=== PATIENT | female | born 1960 | race Caucasian/White ===

== ENCOUNTER → 2016-05-20 08:33 | Day surgery (SDC) | payer OTHER ==
[~2016-05-20 08:33] MED LIST: Buffered Lidocaine 1% SYR 3ML* 3 ML/SYR SYRINGE INTRADERM ONE; Bupivacaine 0.25% SDV* 30 ML ONE; Dexamethasone IV* 4 MG/ML 1 ML (4 MG) ONE; Famotidine IV* 10 MG/ML 2 ML (20 mg) ONE; KETAMINE HCL* 50 MG/ML 10 ML VIAL ONE; Ketorolac INJ* 30 MG/ML 1 ML VIAL ONE; Lidocaine 2% PF * 5 ML VIAL ONE; Metoclopramide TAB* 10 MG ONE; Midazolam* 1 MG/ML 5 ML VIAL (5 MG) ONE; Ondansetron INJ* 2 MG/ML VIAL IV PRN; Ondansetron INJ* 2 MG/ML VIAL ONE; Propofol* 10 MG/ML 20 ML BTL IV PUSH ONE; ceFAZolin 2 GM PREMIX (*) 2 GM/50 ML BAG IVPB ONE; fentaNYL* 50 MCG/ML 2 ML VIAL (100 MCG VIAL) IV PRN; fentaNYL* 50 MCG/ML 2 ML VIAL (100 MCG VIAL) ONE; oxyCODONE/Acetamin 5/325 MG* TAB ONE; oxyCODONE/Acetamin 5/325 MG* TAB PO PRN
[2016-05-20] MEDS: Famotidine IV* 10 MG/ML 2 ML (20 mg) IV ONE ×2 (09:14→10:03)
[2016-05-20] MEDS: Metoclopramide TAB* 10 MG PO ONE ×2 (09:15→10:04)
[2016-05-20 13:59] VITALS: BP 107/69
--- NOTE | 2016-05-20 23:52 | OP ---
DATE OF OPERATION: 05/20/16 - [facility] DATE OF : 62 SURGEON: Dashawn Yates MD DIESEL INSPECTOR: KUMAR Manzo ANESTHESIOLOGIST: Dr. Klein. ANESTHESIA: Local MAC PRE-OP DIAGNOSIS: Symptomatic hardware, left olecranon plate and screws. POST-OP DIAGNOSIS: Symptomatic hardware, left olecranon plate and screws. OPERATIVE PROCEDURE: Removal of left olecranon plate and screws. INDICATIONS: Ms. Reece had her left olecranon fracture fixed by Dr. Sathya Walters back in February of 2011. It has healed uneventfully, but the plate is quite prominent and it is bothering her and so she elected to proceed with removal of the plate and screws. She was also having some intermittent numbness and tingling in the ulnar nerve distribution as well as some neuropathic type symptoms. We had talked about doing an ulnar nerve decompression at the same time over there. She had decided to hold off on that. ESTIMATED BLOOD LOSS: 5 mL. COMPLICATIONS: Just one of the screws was firmly embedded in the bone and became dissociated from the head of the screw during removal and remained retained in the bone. FINDINGS: As expected. DESCRIPTION OF PROCEDURE: She was seen in the preoperative holding area. The correct side, site and procedure were identified. She came back to the operating room where we had a time-out and I anesthetized the operative area. She received some additional anesthesia and then we prepped and draped the arm in the usual fashion and a formal time-out was performed. Utilizing the patient's prior incision, full-thickness flaps were raised straight down to the proximal ulna and olecranon. As we came proximally, I made a small split in the distal triceps tendon, although the plate did not extend too far proximal and there was not too much of a split required. Soft tissue was freed up off the plate. I then used both the hexagonal and the StarDrive screwdrivers to remove the screws from distal to proximal. When I got to the very much proximal screw, it was very firmly embedded in the bone. I went back and forth between the combinations of slightly tightening the screw and then loosening it, tightening it and loosening it, and ultimately the head of the screw broke off. At this point, I then removed the plate and used the rongeur to nip off any sharp bony edges. I then used the broken screw removal set to core out about three-quarters of a centimeter length around the screw where the screw that had broken off. I then used the reverse threading device to engage the threads of the retained screw. It was very firmly fixed into the bone and as I tried to remove the screw, the screw then broke again at the tip of the reverse threading device. At this point, I decided that it would cause much more harm than good to make any further attempts to remove the remainder of the fully embedded screw, so we went ahead and irrigated out the wound and closed the distal split in the triceps with a 0 Vicryl. The subcutaneous tissue was reapproximated with 3-0 Polysorb and the skin closed with 3-0 nylon. The wound was dressed with Xeroform, 4x4s, sterile Webril, and Sidney wrap and then she was taken to the recovery room in stable condition. [id number]/[facility] #: [id number] ALVARO
--- NOTE | 2016-05-21 15:20 | RAD ---
INDICATION: S 52.022S COMPARISONS: April 14, 2016 TECHNIQUE: Fluoroscopy was provided for a surgical procedure. Total fluoroscopy time is: 8 seconds FINDINGS: Spot images demonstrate interval removal of fixation plate and screws of the left. There is a residual screw of the proximal ulna IMPRESSION: FLUOROSCOPY WAS PROVIDED FOR A SURGICAL PROCEDURE CPT II Codes: 6045F
== END | disposition home or self-care (01) ==
LOC: OREAST 08:33
PROVIDERS: ATTEND Orthopaedic Surgery Hand Surgery
DX: T84.84XA Pain due to internal orthopedic prosthetic devices, implants and grafts, initial encounter (principal); Y79.3 Surgical instruments, materials and orthopedic devices (including sutures) associated with adverse incidents; Y92.9 Unspecified place or not applicable; G56.22 Lesion of ulnar nerve, left upper limb; Z79.82 Long term (current) use of aspirin
CPT/HCPCS: 76000; 88300; A9270-GY; J0690; J1100; J1885; J2250; J2405; J2704; J3010

== ENCOUNTER 2016-05-25 16:08 | Emergency (ER) | payer OTHER ==
[2016-05-25 16:24] VITALS: BP 149/93
--- NOTE | 2016-05-25 19:30 | ED ---
Upper Extremity Pain - HPI Summary HPI Summary: Pt here w/ premature removal of sutures s/p elbow hardware removal surgery with Dr. Yates 6 days ago. She did not like the way the sutures were placed - too tight and skin was "bunched" - fear that this would poor unsightly so removed them. Wound is closed and w/o leaking. She has scabbing within the wound now. Somewhat warmer and swollen compared to Rt elbow but no redness, no streaking, no fluctuance. Also had a rash on her arm and was seen by ortho the other day. They removed her dressing and this is when she saw her sutures and made decision to remove. Rash is improving w/ dressing removal and claritin. Denies fever, chills, N/V/D but does feel she's still recovering in general from her surgery. Denies numbness, tingling, weakness. Has been using FROM w/ this joint as she wasn't clear about post surgical activity. - History of Current Complaint Chief Complaint: EDLacSutureRecheck Stated Complaint: LT ARM INJURY Time Seen by Provider: 05/25/16 18:07 Hx Obtained From: Patient - Allergies/Home Medications Allergies/Adverse Reactions: Allergies Allergy/AdvReac Type Severity Reaction Status Date / Time No Known Allergies Allergy Verified 05/20/16 09:04 PMH/Surg Hx/FS Hx/Imm Hx Previously Healthy: Yes Musculoskeletal History: Reports: Other Musculoskeletal History - sometimes pain in right calf; Lt elbow surgery Sensory History: Reports: Hx Contacts or Glasses - wears reading glasses Denies: Hx Cataracts, Hx Hearing Aid Opthamlomology History: Reports: Hx Contacts or Glasses - wears reading glasses Denies: Hx Cataracts - Cancer History Hx Chemotherapy: No - Surgical History Surgery Procedure, Year, and Place: 2012 hardware left arm Hx Anesthesia Reactions: No Infectious Disease History: No Infectious Disease History: Denies: Traveled Outside the [place] in Last 30 Days - Social History Alcohol Use: Occasionally Substance Use Type: Reports: None Smoking Status (MU): Former Smoker Review of Systems Constitutional: Other - see HPI Negative: Chest Pain Negative: Shortness Of Breath Negative: Vomiting, Nausea Positive: no symptoms reported Musculoskeletal: Other - see HPI Skin: Other - see HPI Negative: Headache, Weakness, Paresthesia, Numbness Psychological: Normal All Other Systems Reviewed And Are Negative: Yes Physical Exam Triage Information Reviewed: Yes Vital Signs On Initial Exam: Initial Vitals Temp Pulse Resp BP Pulse Ox 98.0 F 89 16 149/93 100 05/25/16 16:19 05/25/16 16:19 05/25/16 16:19 05/25/16 16:19 05/25/16 16:19 Vital Signs Reviewed: Yes Appearance: Positive: Well-Appearing, No Pain Distress, Well-Nourished Skin: Positive: Warm, Dry - papular salmon colored urticarial rash over Lt forearm; elbow w/ linear scabbed scar - no drainage, no erythema, no fluctuance ; mild edema compared to Rt - about equal temp to touch Head/Face: Positive: Normal Head/Face Inspection Eyes: Positive: Normal, EOMI, Conjunctiva Clear ENT: Positive: Hearing grossly normal, Pharynx normal Respiratory/Lung Sounds: Positive: Breath Sounds Present Cardiovascular: Positive: Normal, Pulses are Symmetrical in both Upper and Lower Extremities Musculoskeletal: Positive: Normal, Strength/ROM Intact Neurological: Positive: Normal, Sensory/Motor Intact, Alert, Oriented to Person Place, Time, CN Intact II-III Psychiatric: Positive: Anxious Procedures - Procedure Summary Procedure Summary: Skin about surgical wound cleaned and dried then steristrips placed. Pt tolerated well. Diagnostics - Vital Signs Vital Signs Temp Pulse Resp BP Pulse Ox 05/25/16 16:19 98.0 F 89 16 149/93 100 - Laboratory Lab Statement: Any lab studies that have been ordered have been reviewed, and results considered in the medical decision making process. Course/Dx - Course Course Of Treatment: Discussed w/ pt that I do not feel comfortable placing more sutures at this time and in fact tissue appears to be healing well/ approximated, w/o infection, etc. Offered to contact Dr. Yates for advice on her situation however she asked me not to contact him as she did not trust his suture abilities from this surgery. Discussed w/ Dr. Hernandez who feels placing steristrips over the wound would be appropriate by reducing tension of the tissue. Education about how to care for steristrips and to still keep f/u appts w/ Dr. Yates as directed. Danger s/sx reviewed of when to return to ED. Pt agrees w/ plan. NOTE: suggested benadryl 50mg before bed to help w/ rash on arm. She will f/u as directed. - Diagnoses Provider Diagnoses: Healing of postoperative wound Discharge - Discharge Plan Condition: Stable Disposition: HOME Patient Education Materials: Gail (ED) Referrals: Jalen Hall MD [Primary Care Provider] - Additional Instructions: It is advised that you keep steri strips dry and intact until they fall off on their own. Limited ROM elbow to prevent premature dehiscence of your wound. Follow-up with Dr. Yates as recommended. *If wound opens and starts to drain and/or you develop redness, swelling, fever , chills, vomiting or change in sensation of your upper extremity, return to ED NOTE: you may try benadryl 50mg before bed to help with rash
== END 2016-05-25 19:56 | disposition home or self-care (01) ==
LOC: ED 16:08
DX: Z48.1 Encounter for planned postprocedural wound closure (principal); Z87.891 Personal history of nicotine dependence
CPT/HCPCS: 99281

== ENCOUNTER 2016-12-14 17:48 | Emergency (ER) | payer OTHER ==
--- NOTE | 2016-12-14 19:04 | RAD ---
Indication: Right calf pain. Duplex Doppler sonography of the deep venous system of the right lower extremity deep venous system was performed. Bilaterally the common femoral veins appear patent and compressible. Right proximal greater saphenous vein, proximal deep femoral vein, femoral vein, popliteal vein, posterior tibial veins and peroneal veins appear patent and compressible. IMPRESSION: NO EVIDENCE OF DEEP VENOUS THROMBOSIS IS IDENTIFIED.
[2016-12-14 21:24] LABS: Hematocrit 42 % (35-47); Mean Corpuscular HGB Conc 34 g/dl (31-36); Mean Corpuscular Hemoglobin 28 pg (27-31); Mean Corpuscular Volume 85 fL (80-97); Mean Platelet Volume 8 um3 (7.4-10.4); Red Blood Count 4.92 10^6/ul (4.0-5.4); Red Cell Distribution Width 14 % (10.5-15); White Blood Count 6.8 10^3/ul (3.5-10.8)
[2016-12-14 21:38] LABS: Albumin 3.9 g/dL (3.2-5.2); BUN/Creatinine Ratio 25.7 (8-20); Calcium 9.1 mg/dL (8.6-10.3); EGFR African American 104.8 (>60); EGFR Non-African American 81.5 (>60); Potassium 3.9 mmol/L (3.5-5.0); Total Bilirubin 0.3 mg/dL (0.2-1.0); Total Protein 6.9 g/dL (6.4-8.9)
--- NOTE | 2016-12-14 21:44 | RAD ---
Indication: Right ankle injury. 3 views of the right ankle demonstrates no fracture. Ankle mortise is intact. IMPRESSION: No fracture of the right ankle is noted.
--- NOTE | 2016-12-14 21:46 | RAD ---
Indication: Right anterior leg pain. 2 views of the right lower leg demonstrates no fracture. No other bone or joint abnormality is noted. IMPRESSION: No fracture of the right lower leg is noted.
--- NOTE | 2016-12-14 22:11 | ED ---
Sophia Babin Rebecca, scribed for Mayito Lin MD on 12/14/16 at 2121 . Lower Extremity - HPI Summary HPI Summary: Pt is a 56 y/o F who presents to ED c/o R inferior posterior calf pain. Sx began 2 weeks ago and pain is currently severe, ranked 9/10. Pain has not been affecting her gait. Sx aggravated by palpation, alleviated by nothing. Denies edema, SOB, pleuritic pain. No prior similar episodes. Pt has been able to ambulate normally. - History of Current Complaint Chief Complaint: EDExtremityLower Stated Complaint: LEG PAIN Hx Obtained From: Patient Onset of Pain: Days - 2 weeks Onset/Duration: Still Present Severity Currently: Severe Pain Intensity: 9 Pain Scale Used: 0-10 Numeric Location: Is Discrete @ - R inferior posterior calf Associated Signs And Symptoms: Positive: Negative. Negative: Swelling Aggravating Factor(s): Other - Plpation Alleviating Factor(s): Nothing Able to Bear Weight: Yes - Allergies/Home Medications Allergies/Adverse Reactions: Allergies Allergy/AdvReac Type Severity Reaction Status Date / Time No Known Allergies Allergy Verified 05/20/16 09:04 PMH/Surg Hx/FS Hx/Imm Hx Musculoskeletal History: Reports: Other Musculoskeletal History - sometimes pain in right calf; Lt elbow surgery Sensory History: Reports: Hx Contacts or Glasses - wears reading glasses Denies: Hx Cataracts, Hx Hearing Aid Opthamlomology History: Reports: Hx Contacts or Glasses - wears reading glasses Denies: Hx Cataracts - Cancer History Hx Chemotherapy: No - Surgical History Surgery Procedure, Year, and Place: 2012 hardware left arm Hx Anesthesia Reactions: No Infectious Disease History: No Infectious Disease History: Denies: Traveled Outside the [place] in Last 30 Days - Family History Known Family History: Positive: Other - [place] - Social History Alcohol Use: Occasionally Substance Use Type: Reports: None Smoking Status (MU): Former Smoker Review of Systems Positive: Other - NEGATIVE: pleuritic pain Negative: Shortness Of Breath Positive: Myalgia - R inferior posterior calf pain, Other - NEGATIVE: Swelling All Other Systems Reviewed And Are Negative: Yes Physical Exam Triage Information Reviewed: Yes Vital Signs On Initial Exam: Initial Vitals Temp Pulse Resp BP Pulse Ox 98.6 F 103 20 153/92 97 12/14/16 18:20 12/14/16 18:20 10/17/17 18:20 12/14/16 18:20 12/14/16 18:20 Vital Signs Reviewed: Yes Appearance: Positive: Well-Appearing, No Pain Distress Skin: Positive: Warm, Skin Color Reflects Adequate Perfusion Head/Face: Positive: Normal Head/Face Inspection Eyes: Positive: Normal ENT: Positive: Normal ENT inspection Neck: Positive: Supple Respiratory/Lung Sounds: Positive: Clear to Auscultation, Breath Sounds Present Cardiovascular: Positive: Normal Abdomen Description: Positive: Nontender, Soft Musculoskeletal: Positive: Other - Examination of the RLE reveals minimal tenderness to palpation of the calf, no erythema, no edema,negative Frantz's sign and intact pulses. Negative: Frantz Sign Right Neurological: Positive: Normal, Sensory/Motor Intact, Alert, Oriented to Person Place, Time Psychiatric: Positive: Normal - Eva Coma Scale Coma Scale Total: 15 Diagnostics - Vital Signs Vital Signs Temp Pulse Resp BP Pulse Ox 12/14/16 20:22 88 95 12/14/16 20:20 140/89 12/14/16 18:20 98.6 F 103 20 153/92 97 - Laboratory Lab Results: Lab Results 12/14/16 12/14/16 12/14/16 Range/Units 21:17 21:17 21:17 WBC 6.8 (3.5-10.8) 10^3/ul RBC 4.92 (4.0-5.4) 10^6/ul Hgb 14.0 (12.0-16.0) g/dl Hct 42 (35-47) % MCV 85 (80-97) fL MCH 28 (27-31) pg MCHC 34 (31-36) g/dl RDW 14 (10.5-15) % Plt Count 310 (150-450) 10^3/ul MPV 8 (7.4-10.4) um3 Neut % (Auto) 46.5 (38-83) % Lymph % (Auto) 36.4 (25-47) % Stafford % (Auto) 8.7 (1-9) % Eos % (Auto) 7.3 H (0-6) % Baso % (Auto) 1.1 (0-2) % Absolute Neuts (auto) 3.2 (1.5-7.7) 10^3/ul Absolute Lymphs (auto) 2.5 (1.0-4.8) 10^3/ul Absolute Monos (auto) 0.6 (0-0.8) 10^3/ul Absolute Eos (auto) 0.5 (0-0.6) 10^3/ul Absolute Basos (auto) 0.1 (0-0.2) 10^3/ul Absolute Nucleated RBC 0 10^3/ul Nucleated RBC % 0 INR (Anticoag Therapy) 0.86 L (0.89-1.11) Sodium 138 (133-145) mmol/L Potassium 3.9 (3.5-5.0) mmol/L Chloride 106 (101-111) mmol/L Carbon Dioxide 26 (22-32) mmol/L Anion Gap 6 (2-11) mmol/L BUN 19 (6-24) mg/dL Creatinine 0.74 (0.51-0.95) mg/dL Est GFR ( Amer) 104.8 (>60) Est GFR (Non-Af Amer) 81.5 (>60) BUN/Creatinine Ratio 25.7 H (8-20) Glucose 83 (70-100) mg/dL Calcium 9.1 (8.6-10.3) mg/dL Total Bilirubin 0.30 (0.2-1.0) mg/dL AST 16 (13-39) U/L ALT 16 (7-52) U/L Alkaline Phosphatase 63 (34-104) U/L Total Creatine Kinase 53 (10-223) U/L Total Protein 6.9 (6.4-8.9) g/dL Albumin 3.9 (3.2-5.2) g/dL Globulin 3.0 (2-4) g/dL Albumin/Globulin Ratio 1.3 (1-3) Result Diagrams: 12/14/16 21:17 12/14/16 21:17 Lab Statement: Any lab studies that have been ordered have been reviewed, and results considered in the medical decision making process. - Radiology Right Ankle XR Xray Interpretation: No Acute Changes - No fracture of the right ankle is noted. ED physician reviewed radiology report and agrees. Radiology Interpretation Completed By: Radiologist Right Lower Leg XR Xray Interpretation: No Acute Changes - No fracture of the right lower leg is noted. ED physician reviewed radiology report and agrees. Radiology Interpretation Completed By: Radiologist Lower Extremity Course/Dx - Course Course Of Treatment: feels better after pain meds, neuro intact, normal gait , instructed to f/u with pmd and to return for any worsening or concerning sxs. agrees to and understnads dc instructoins. - Diagnoses Provider Diagnoses: Leg pain, inferior Discharge - Discharge Plan Condition: Good Disposition: HOME Additional Instructions: 1. PLEASE RETURN TO THE ER FOR ANY WORSENING OR CONCERNING SYMPTOMS 2. PLEASE SEE YOUR PRIMARY CARE DOCTOR WITHIN 1 WEEK The documentation as recorded by the Sophia connelly Rebecca accurately reflects the service I personally performed and the decisions made by me, Mayito Lin MD.
[2016-12-14 22:20] VITALS: BP 129/95
== END 2016-12-14 22:21 | disposition home or self-care (01) ==
LOC: ED 17:48
DX: M79.606 Pain in leg, unspecified (principal)
CPT/HCPCS: 36415; 80053; 82550; 85025; 85610; 99282

== ENCOUNTER 2019-02-02 12:28 | Inpatient (IN) | payer OTHER ==
--- NOTE | 2019-01-24 15:22 | HP ---
HISTORY AND PHYSICAL: DATE OF ADMISSION/SURGERY: 02/02/19 DATE OF OFFICE VISIT: 01/19/19 SURGEON: Gwendolyn Brian MD * (DICTATED BY KUMAR COX) PROCEDURE: Left total hip arthroplasty. CHIEF COMPLAINT: Left hip pain. HISTORY OF PRESENT ILLNESS: Ms. Reece is a 58-year-old female with end- stage osteoarthritis of the left hip. She has failed conservative treatment and elected to proceed with a left total hip arthroplasty. PAST MEDICAL HISTORY: Denies. PAST SURGICAL HISTORY: Left arm surgery for a fracture and removal of hardware from her left upper extremity. CURRENT MEDICATIONS: 1. Magnesium oxide. 2. Multivitamin. 3. Premarin. 4. Calcium with vitamin D. 5. Airborne Elderberry. ALLERGIES: No known drug allergies. FAMILY HISTORY: Denies. SOCIAL HISTORY: She is a 58-year-old female. She lives alone. She does not smoke or use drugs. Uses alcohol rarely. REVIEW OF SYSTEMS: A complete 14-point review of systems was reviewed with the patient. It was all negative or noncontributory. She denies history of DVT, PE , hepatitis, HIV, or anesthesia problems. PHYSICAL EXAMINATION GENERAL: She is well developed, well nourished, in no acute distress. VITAL SIGNS: She stands 5 feet 7 inches tall, weighs 189 pounds. Her blood pressure is 116/82 and heart rate is 84. HEENT: Normocephalic, atraumatic. NECK: Supple. No palpable lymph nodes. PULMONARY: The lungs are clear to auscultation bilaterally. CARDIO: Regular rate and rhythm. Strong S1, S2. ABDOMEN: Soft, nontender, nondistended. NEUROLOGICAL: She is alert and oriented x3. MUSCULOSKELETAL: Left lower extremity: The skin is intact. There are no open wounds or abrasions. She walks with an antalgic-type gait favoring her left hip. She has decreased internal and external rotation of the left hip. She is able to dorsiflex and plantarflex, has a 2+ dorsalis pedis pulse and intact sensation. ASSESSMENT AND PLAN: Ms. Reece is a 58-year-old female with end-stage osteoarthritis of the left hip. She has failed conservative treatment and elected to proceed with a left total hip arthroplasty. The surgery is scheduled for 02/02/[address] Brian discussed the risks and benefits of the surgery at today's visit and all of her questions were answered. She will follow up with Dr. Brian 2 weeks after the surgery. KUMAR COX [id number]/[facility] #: [id number] ALVARO
[~2019-02-02 12:28] MED LIST changes: -Buffered Lidocaine 1% SYR 3ML* 3 ML/SYR SYRINGE INTRADERM ONE; +Buffered Lidocaine 1% SYRIN* 1 ML/SYRINGE INTRADERM ONE; -Bupivacaine 0.25% SDV* 30 ML ONE; +Bupivacaine 0.5% SDV PF* 30ML VIAL ONE; +Dexamethasone IV* 4 MG/ML 1 ML (4 MG) IV SLOW PU ONE; -Dexamethasone IV* 4 MG/ML 1 ML (4 MG) ONE; +Famotidine IV* 10 MG/ML 2 ML (20 mg) IV ONE; -Famotidine IV* 10 MG/ML 2 ML (20 mg) ONE; +Gabapentin CAP(*) 300 MG PO ONE; -KETAMINE HCL* 50 MG/ML 10 ML VIAL ONE; -Ketorolac INJ* 30 MG/ML 1 ML VIAL ONE; +Lactated Ringers 1000 ML Bag* 1,000 ML IV SCH; -Lidocaine 2% PF * 5 ML VIAL ONE; -Metoclopramide TAB* 10 MG ONE; -Midazolam* 1 MG/ML 5 ML VIAL (5 MG) ONE; -Ondansetron INJ* 2 MG/ML VIAL IV PRN; -Ondansetron INJ* 2 MG/ML VIAL ONE; -Propofol* 10 MG/ML 20 ML BTL IV PUSH ONE; +Tranexamic Acid 1,000 MG in NS 0.9% 50 ML* (outpatient use) IV SCH; -ceFAZolin 2 GM PREMIX (*) 2 GM/50 ML BAG IVPB ONE; +celeCOXIB CAP* 200 MG PO ONE; -fentaNYL* 50 MCG/ML 2 ML VIAL (100 MCG VIAL) IV PRN; -fentaNYL* 50 MCG/ML 2 ML VIAL (100 MCG VIAL) ONE; -oxyCODONE/Acetamin 5/325 MG* TAB ONE; -oxyCODONE/Acetamin 5/325 MG* TAB PO PRN
--- OUTSIDE RECORDS SUMMARY | 2019-02-02 12:33 | XMS REPORT | Continuity of Care Document ---
:1960 External Reference #:[id number] Author Name IMMANUEL Almanzar (transmitted by agent of provider Amara Shaw) Address [address] [place] [address] Care Team Providers Name Role Phone Dashawn Yates MD - Hand Surgery Care Team Information Waiter/Waitress Bar Katherine Linn MD - Internal Medicine Care Team Information Waiter/Waitress Bar [phone] Problems Active Problems Provider Date Open reduction of fracture with Jalen Hall M.D.,[facility] Onset: 2016 internal fixation Note: L forearm Lesion of ulnar nerve Dashawn Yates MD Onset: 04/28/2016 Mixed hyperlipidemia Ross Foster M.D. Onset: 04/22/2017 Cervico-occipital neuralgia Ross Foster M.D. Onset: 04/22/2017 Candidiasis Ross Foster M.D. Onset: 04/22/2017 Obesity Ross Foster M.D. Onset: 04/22/2017 Localized, primary osteoarthritis of the Gwendolyn Brian M.D. Onset: 07/03/2018 pelvic region and thigh Localized, primary osteoarthritis Gwendolyn Brian M.D. Onset: 07/03/2018 Social History Type Date Description Comments Sex Unknown Tobacco Use Start: Unknown End: Former Cigarette Smoker Unknown Smoking Status Reviewed: 01/10/19 Former Cigarette Smoker ETOH Use 04/20/2016 Occasionally consumes alcohol Tobacco Use Start: Unknown End: Patient is a former smoker quit 2009. Unknown Recreational Drug Use Denies Drug Use Exercise Type/Frequency 04/14/2016 Exercises rarely Allergies, Adverse Reactions, Alerts Description No Known Drug Allergies Medications Active Medications SIG Qnty Indications Ordering Date Provider Magnesium Oxide 1 by mouth every 30tabs Katherine Linn MD 08/09/2018 evening 400(240Mg) mg Tablets Multivitamin Adults once daily Katherine Linn MD 04/26/2018 Tablets Clotrimazole apply twice daily 90gm B37.9 Tammieofivanessa Bridges, 04/22/2017 1% Cream STAIR BUILDER Aspir-81 1 by mouth every 30tabs Jalen Talavera 01/31/2017 81mg Tablets day Neil Hall,FACP DR Evans use1 applicator 30gm N95.1 Katherine Linn MD 04/14/2016 0.625mg/GM intavaginal 2x per Cream week Calcium 1000 + D 1 by mouth every Unknown day [id number] Tablets History Medications Amoxicillin/Clavulanate 08/09/18 20tabs R50.9 Katherine Linn, 07/28/2018 - Potassium finished 1 by 08/09/2018 875-125mg Tablets mouth twice a day Medications Administered in Office Medication SIG Qnty Indications Ordering Provider Date Triamcinolone (Kenalog) Gwendolyn Brian M.D. 07/17/2018 Injection Depomedrol 40MG Gwendolyn Brian M.D. 07/03/2018 Injection Immunizations CPT Code Status Date Vaccine Reaction Lot # [id number] Given 01/10/2019 Influenza Virus Vaccine, shot tolerated well, [place] [id number] Quadrivalent, Split, immediate reaction Preservative Free [id number] Given 04/26/2018 Tdap - No immediate reaction [id number] Tetanus/Diptheria/Acellular Pertussis 05323 Given 01/31/2017 Influenza Virus Vaccine, no reaction, pt [id number] Quadrivalent, Split, tolerated well Preservative Free Vital Signs Date Vital Result Comment 01/10/2019 1:11pm Height 67 inches 5'7" Weight 191.38 lb Heart Rate 79 /min BP Systolic 136 mmHg BP Diastolic 81 mmHg Body Temperature 98.1 F O2 % BldC Oximetry 98 % BMI (Body Mass Index) 30.0 kg/m2 12/18/2018 10:28am Height 67 inches 5'7" Weight 191.75 lb Heart Rate 76 /min BP Systolic 142 mmHg BP Diastolic 80 mmHg Respiratory Rate 14 /min Pain Level 0 BMI (Body Mass Index) 30.0 kg/m2 Results Test Acquired Date Facility Test Result H/L Range Note Order 01/10/2019 [facility] In-House EKG Viewed by Sommer Flood CBC Auto 07/12/2018 [facility] White Blood 5.9 10^3/uL Normal 3.5-10.[address] [place] [address] [phone] Red Blood Count 5.13 10^6/uL High 3.70-4.87 Hemoglobin 14.4 g/dL Normal 12.0-16.0 Hematocrit 43 % Normal 35-47 Mean Corpuscular Volume 85 fL Normal 80-97 Mean Corpuscular Hemoglobin 28 pg Normal 27-31 Mean Corpuscular HGB Conc 33 g/dL Normal 31-36 Red Cell Distribution Width 14 % Normal 10.5-15 Platelet Count 338 10^3/uL Normal 150-450 Mean Platelet Volume 7.7 fL Normal 7.4-10.4 Abs Neutrophils 3.1 10^3/uL Normal 1.5-7.7 Abs Lymphocytes 2.0 10^3/uL Normal 1.0-4.8 Abs Monocytes 0.5 10^3/uL Normal 0-0.8 Abs Eosinophils 0.2 10^3/uL Normal 0-0.6 Abs Basophils 0.0 10^3/uL Normal 0-0.2 Abs Nucleated RBC 0.0 10^3/uL Granulocyte % 53.4 % Lymphocyte % 33.7 % Monocyte % 9.1 % Eosinophil % 3.0 % Basophil % 0.8 % Nucleated Red Blood Cells % 0.1 Comp Metabolic 07/12/2018 [facility] Sodium 139 mmol/L Normal 135-[address] [place] [address] [phone] Potassium 4.5 mmol/L Normal 3.5-5.0 Chloride 106 mmol/L Normal 101-111 Co2 Carbon Dioxide 28 mmol/L Normal 22-32 Anion Gap 5 mmol/L Normal 2-11 Glucose 88 mg/dL Normal 70-100 Blood Urea Nitrogen 18 mg/dL Normal 6-24 Creatinine 0.71 mg/dL Normal 0.51-0.95 BUN/Creatinine Ratio 25.4 High 8-20 Calcium 9.8 mg/dL Normal 8.6-10.3 Total Protein 6.8 g/dL Normal 6.4-8.9 Albumin 4.3 g/dL Normal 3.2-5.2 Globulin 2.5 g/dL Normal 2-4 Albumin/Globulin Ratio 1.7 Normal 1-3 Total Bilirubin 0.40 mg/dL Normal 0.2-1.0 Alkaline Phosphatase 76 U/L Normal 34-104 Alt 13 U/L Normal 7-52 Ast 14 U/L Normal 13-39 Egfr Non- 84.8 >60 Egfr 102.7 >60 1 Laboratory 07/12/2018 [facility] TSH (Thyroid 3.26 Normal 0.34 -5.60 test finding [address] Stim Horm) mcIU/mL [place], [place] [id number] [phone] Vitamin B12 426 pg/mL Normal 180-914 2 1 Because ethnic data is not always readily available, this report includes an eGFR for both -Americans and non- Americans. The National Kidney Disease Education Program (NKDEP) does not endorse the use of the MDRD equation for patients that are not between the ages of 18 and 70, are , have extremes of body size, muscle mass, or nutritional status, or are non- or non-. According to the National Kidney Foundation, irrespective of diagnosis, the stage of the disease is based on the level of kidney function: Stage Description GFR(mL/min/1.73 m(2)) 1 Kidney damage with normal or decreased GFR 90 2 Kidney damage with mild decrease in GFR 60-89 3 Moderate decrease in GFR 30-59 4 Severe decrease in GFR 15-29 5 Kidney failure <15 (or dialysis) 2 Normal Range 180 to 914 Indeterminate Range 145 to 180 Deficient Range <145 Procedures Date Code Description Status 01/10/2019 33463 EKG Tracing & Interpretation Completed 01/04/2019 [id number] Colonoscopy Completed 07/17/2018 39937 Inject/Drain Joint/Bursa Major W/O US Completed 05/20/2017 616734136 Bone Mineral Density Test Completed 02/04/2017 21651750 Mammogram Completed Medical Devices Description No Information Available Encounters Type Date Location Provider Dx Diagnosis Office Visit 12/18/2018 [facility] Gwendolyn Brian, M25.552 Pain in left hip 10:00a at [facility] Trejo M16.12 Unilateral primary osteoarthritis, left hip Office Visit 09/21/2018 10:20a [facility] Internal Katherine Linn R59.0 [facility] 08/09/2018 10:00a [facility] Internal Katherine Linn Z12.11 [facility] ne[facility] of colon R59.0 Localized enlarged lymph nodes Office Visit 07/28/2018 4:20p [facility] Internal Katherine Linn R50.9 Fever[facility] unspecified Office Visit 07/17/2018 2:45p [facility] Gwendolyn M25.561 Pain in right at Jocelyn Brian M.D. knee M25.461 Effusion, right knee M17.11 Unilateral primary osteoarthritis, right knee M25.552 Pain in left hip M16.12 Unilateral primary osteoarthritis, left hip Office Visit 07/12/2018 9:40a [facility] Internal Katherine Linn MD R53.83 Other [facility] Localized enlarged lymph nodes Assessments Date Code Description Provider 01/10/2019 Z01.818 Encounter for other preprocedural examination Chyna Bridges [facility] 01/10/2019 M16.12 Unilateral primary osteoarthritis, left hip Chyna Bridges , [facility] 01/10/2019 B37.9 Candidiasis, unspecified Chyna Bridges, [facility] 01/10/2019 Z23 Encounter for immunization Chyna Bridges, [facility] 12/18/2018 M25.552 Pain in left hip Gwendolyn Brian M.D. 12/18/2018 M16.12 Unilateral primary osteoarthritis, left hip Gwendolyn Brian M.D. 09/21/2018 R59.0 Localized enlarged lymph nodes Katherine Linn MD 08/09/2018 Z12.11 Encounter for screening for malignant neoplasm Katherine Linn MD of colon 08/09/2018 R59.0 Localized enlarged lymph nodes Katherine Linn MD 07/28/2018 R50.9 Fever, unspecified Katherine Linn MD 07/17/2018 M25.561 Pain in right knee Gwendolyn Brian M.D. 07/17/2018 M25.461 Effusion, right knee Gwendolyn Brian M.D. 07/17/2018 M17.11 Unilateral primary osteoarthritis, right knee Gwendolyn Brian M.D. 07/17/2018 M25.552 Pain in left hip Gwendolyn Brian M.D. 07/17/2018 M16.12 Unilateral primary osteoarthritis, left hip Gwendolyn Brian M.D. 07/12/2018 R53.83 Other fatigue Katherine Linn MD 07/12/2018 R59.0 Localized enlarged lymph nodes Katherine Linn MD Plan of Treatment Future Appointment(s):01/19/2019 9:00 am - Gwendolyn Brian M.D. at [facility] at Smssjq6802/02/2019 12:30 pm - Gwendolyn Brian M.D. at [facility] at Qmhsje6204/27/2019 1:20 pm - Katherine Linn MD at [facility] Internal Medicine - [facility]01/10/2019 - Chyna Bridges, FNPZ01.818 Encounter for other preprocedural examinationComments:MEDICAL CLEARANCE PRIOR TO SURGERY:I will contact your surgeon with the results of today's visit.Youhave no contraindication to proceed with planned surgeryYou do not have any medication that you absolutely have to take on the day of the surgery. You should hold aspirin for a week prior to surgery will order some routine preoperative lab work at your preoperative exam. You had a normal blood work in June and you do not need additional imzpfikD01.12 Unilateral primary osteoarthritis, left hipComments:Please keep exercising as tolerated.The stronger you are going into surgery, the better of the income will beB37.9 Candidiasis, [id number] Encounter for immunizationComments:Shingles vaccine : There is a new shingles vaccine called Shingrix. SHINGRIX is a vaccine indicated for prevention of herpes zoster (shingles) in adults aged 50 years and older and in immunocompromised individuals.This vaccine is a 2 tier vaccine.Please call your insurance company to make sure they provide coverage for this vaccineYou had the flu vaccine todayI recommend that you have 2-3 weeks before you get the shingle vaccine Functional Status Description No Information Available Mental Status Description No Information Available Referrals Description No Information Available
--- OUTSIDE RECORDS SUMMARY | 2019-02-02 12:33 | XMS REPORT | Continuity of Care Document ---
:1960 External Reference #:[id number] Author Name Gwendolyn Brian M.D. (transmitted by agent of provider Triny Glass) Address [address] [place] [address] Care Team Providers Name Role Phone Dashawn Yates MD - Hand Surgery Care Team Information Industrial Maintenance Repairer [phone] Katherine Linn MD - Internal Medicine Care Team Information Industrial Maintenance Repairer [phone] Problems Active Problems Provider Date Open reduction of fracture with Jalen Hall M.D.,FACP Onset: 2016 internal fixation Note: L forearm [...] Former Cigarette Smoker Unknown Smoking Status Reviewed: 12/18/18 Former Cigarette Smoker ETOH Use 04/20/2016 Occasionally consumes alcohol Tobacco Use Start: Unknown End: Patient is a former social smoker X 20 Unknown smoker years Recreational Drug Use Denies Drug Use Exercise Type/Frequency 04/14/2016 Exercises rarely Allergies, Adverse Reactions, Alerts Description No Known Drug Allergies Medications Active Medications SIG Qnty Indications Ordering Date Provider Magnesium Oxide 1 by mouth every 30tabs Katherine Linn MD 08/09/2018 evening 400(240Mg) mg Tablets Multivitamin Adults once daily Katherine Linn MD 04/26/2018 Tablets Clotrimazole apply twice daily 90gm B37.9 Ross 04/22/2017 1% Cream Neil Foster Aspir-81 1 by mouth every 30tabs Jalen Talavera 01/31/2017 81mg Tablets brent Hall M.D.,FACP DR Evans use1 applicator 30gm N95.1 Katherine Linn MD 04/14/2016 0.625mg/GM intavaginal 2x per Cream week Calcium 1000 + D 1 by mouth every Unknown day [id number] Tablets History Medications Amoxicillin/Clavulanate 08/09/18 20tabs R50.9 Katherine Linn 07/28/2018 - Potassium finished 1 by 08/09/2018 875-125mg Tablets mouth twice a day Medications Administered in Office Medication SIG Qnty Indications Ordering Provider Date Triamcinolone (Kenalog) Gwendolyn Brian M.D. 07/17/2018 Injection Depomedrol 40MG Gwendolyn Brian M.D. 07/03/2018 Injection Immunizations CPT Code Status Date Vaccine Reaction Lot # [id number] Given 04/26/2018 Tdap - No immediate reaction [id number] Tetanus/Diptheria/Acellular Pertussis 62754 Given 01/31/2017 Influenza Virus Vaccine, no reaction, pt [id number] Quadrivalent, Split, tolerated well Preservative Free Vital Signs Date Vital Result Comment 12/18/2018 10:28am Height 67 inches 5'7" Weight 191.75 lb Heart Rate 76 /min BP Systolic 142 mmHg BP Diastolic 80 mmHg Respiratory Rate 14 /min Pain Level 0 BMI (Body Mass Index) 30.0 kg/m2 09/21/2018 10:10am Height 67 inches 5'7" Weight 190.00 lb Heart Rate 78 /min BP Systolic Sitting 131 mmHg BP Diastolic Sitting 88 mmHg Body Temperature 98.7 F O2 % BldC Oximetry 96 % BMI (Body Mass Index) 29.8 kg/m2 Results Test Date Facility Test Result H/L Range Note CBC Auto 07/12/2018 [facility] White Blood 5.9 10^3/uL Normal 3.5-10.[address] [place] [address] [phone] Red Blood Count 5.13 10^6/uL High 3.70-4.87 [...] Blood Cells % 0.1 Comp Metabolic 07/12/2018 [facility] Sodium 139 mmol/L Normal 135-[address] [place] [address] [phone] Potassium 4.5 mmol/L Normal 3.5-5.0 Chloride 106 [...] >60 Egfr 102.7 >60 1 Laboratory 07/12/2018 [facility] TSH (Thyroid 3.26 Normal 0.34 -5.60 test finding [address] Stim Horm) mcIU/[place] [address] [phone] Vitamin B12 426 pg/mL Normal 180-914 2 [...] Range <145 Procedures Date Code Description Status 07/17/2018 Inject/Drain Joint/Bursa Major W/O US Completed 07/03/2018 Inj/Aspir Major JT Or Bursa W/ US Completed 05/20/2017 [id number] Bone Mineral Density Test Completed 02/04/2017 [id number] Mammogram Completed Medical Devices Description No Information Available Encounters Type Date Location Provider Dx Diagnosis Office Visit 09/21/2018 Anjel Linn MD R59.0 Localized enlarged 10:20a Medicine - [facility] lymph nodes Office Visit 08/09/2018 Anjel Linn MD Z12.11 Encounter for 10:00a Medicine - [facility] screening for malignant neoplasm of colon R59.0 Localized enlarged lymph nodes Office Visit 07/28/2018 4:20p Anjel Linn, R50.9 Fever, Medicine - [facility] unspecified Office Visit 07/17/2018 2:45p [facility] Gwendolyn M25.561 Pain in right at Jocelyn Brian M.D. knee M25.461 Effusion, right knee M17.11 Unilateral primary osteoarthritis, right knee M25.552 Pain in left hip M16.12 Unilateral primary osteoarthritis, left hip Office Visit 07/12/2018 9:40a [facility] Internal Katherine Linn MD R53.83 Other fatigue Medicine - [facility] R59.0 Localized enlarged lymph nodes Office Visit 07/03/2018 10:30a [facility] Gwendolyn Roc, M25.552 Pain in left at Jocelyn PlascenciaDEvon hip M25.561 Pain in right knee M25.562 Pain in left knee M17.0 Bilateral primary osteoarthritis of knee M16.12 Unilateral primary osteoarthritis, left hip M25.461 Effusion, right knee M25.462 Effusion, left knee Assessments Date Code Description Provider 12/18/2018 M25.552 Pain in left hip Gwendolyn [...] Localized enlarged lymph nodes Katherine Linn MD 07/03/2018 M25.552 Pain in left hip Gwendolyn Brian M.D. 07/03/2018 M25.561 Pain in right knee Gwendolyn Brian M.D. 07/03/2018 M25.562 Pain in left knee Gwendolyn Brian M.D. 07/03/2018 M17.0 Bilateral primary osteoarthritis of knee Gwendolyn Brian M.D. 07/03/2018 M16.12 Unilateral primary osteoarthritis, left hip Gwendolyn Brian M.D. 07/03/2018 M25.461 Effusion, right knee Gwendolyn Brian M.D. 07/03/2018 M25.462 Effusion, left knee Gwendolyn Brian M.D. Plan of Treatment Future Appointment(s):01/19/2019 9:00 am - Gwendolyn Brian M.D. at [facility] at Vqnckl1602/02/2019 12:30 pm - Gwendolyn Brian M.D. at [facility] at Taiirq8204/27/2019 1:20 pm - Katherine Linn MD at [facility] Internal Medicine - [facility]12/18/2018 - Gwendolyn Brian M.D.M25.552 Pain in left hipFollow up :Follow up: 7-10 days before nolniglB40.12 Unilateral primary osteoarthritis, left hip Functional Status Description No Information Available Mental Status Description No Information Available Referrals Description No Information Available
--- OUTSIDE RECORDS SUMMARY | 2019-02-02 12:33 | XMS REPORT | Continuity of Care Document ---
:1960 External Reference #:[id number] Author Name Wade López NP (transmitted by agent of provider Sarah Gonzalez) Address [address], [place] [address] Care Team Providers Name Role Phone Dashawn Yates MD - Hand Surgery Care Team Information Management Specialist [phone] Katherine Linn MD - Internal Medicine Care Team Information Management Specialist Problems Active Problems Provider Date Open reduction [facility] fracture [facility] Onset: 2016 internal fixation Note: L forearm Lesion of ulnar nerve Dashawn Yates MD Onset: 04/28/2016 Mixed hyperlipidemia Ross Foster M.D. Onset: 04/22/2017 Cervico-occipital neuralgia Ross Foster M.D. Onset: 04/22/2017 Candidiasis Ross Foster M.D. Onset: 04/22/2017 Obesity Ross Foster M.D. Onset: 04/22/2017 Localized, primary osteoarthritis Gwendolyn Brian M.D. Onset: 07/03/2018 Localized, primary osteoarthritis of the Gwendolyn Brian M.D. Onset: 07/03/2018 pelvic region and thigh Social History Type Date Description Comments Sex Unknown Tobacco Use Start: Unknown End: Former Cigarette Smoker Unknown Smoking Status Reviewed: 01/17/19 Former Cigarette Smoker ETOH Use 04/20/2016 Occasionally consumes alcohol Tobacco Use Start: Unknown End: Patient is a former smoker quit 2009. Unknown Recreational Drug Use Denies Drug Use Exercise Type/Frequency 04/14/2016 Exercises rarely Allergies, Adverse Reactions, Alerts Description No Known Drug Allergies Medications Active Medications SIG Qnty Indications Ordering Date Provider Azithromycin 2 tabs by mouth 6tabs R59.0 Wade López NP 01/17/2019 250mg every day x1 day, 1 Tablets tab by mouth every day x 4 days Magnesium Oxide 1 by mouth every 30tabs Katherine Linn MD 08/09/2018 evening 400(240Mg) mg Tablets Multivitamin Adults once daily Katherine Linn MD 04/26/2018 Tablets Clotrimazole apply twice daily 90gm B37.9 Tammieofivanessa Bridges, 04/22/2017 1% Cream THEATRICAL RIGGER Aspir-81 1 by mouth every 30tabs Jalen Talavera 01/31/2017 81mg Tablets day Neil Hall,FACP DR Evans use1 applicator 30gm N95.1 Katherine Linn MD 04/14/2016 0.625mg/GM intavaginal 2x per Cream week Calcium 1000 + D 1 by mouth every Unknown day [id number]-Yipa Tablets History Medications Amoxicillin/Clavulanate 08/09/18 20tabs R50.9 Katherine Linn, 07/28/2018 - Potassium finished 1 by 08/09/2018 875-125mg Tablets mouth twice a day Medications Administered in Office Medication SIG Qnty Indications Ordering Provider Date Triamcinolone (Kenalog) Gwendolyn Brian M.D. 07/17/2018 Injection Depomedrol 40MG Gwendolyn Brian M.D. 07/03/2018 Injection Immunizations CPT Code Status Date Vaccine Reaction Lot # [id number] Given 01/10/2019 Influenza Virus Vaccine, shot tolerated well, no [id number] Quadrivalent, Split, immediate reaction Preservative Free 04482 Given 04/26/2018 Tdap - No immediate reaction [id number] Tetanus/Diptheria/Acellular Pertussis 15577 Given 01/31/2017 Influenza Virus Vaccine, no reaction, pt [id number] Quadrivalent, Split, tolerated well Preservative Free Vital Signs Date Vital Result Comment 01/17/2019 4:11pm Height 67 inches 5'7" Weight 193.38 lb Heart Rate 82 /min BP Systolic 142 mmHg BP Diastolic 85 mmHg Body Temperature 98.4 F O2 % BldC Oximetry 95 % BMI (Body Mass Index) 30.3 kg/m2 01/10/2019 1:11pm Height 67 inches 5'7" Weight 191.38 lb Heart Rate 79 /min BP Systolic 136 mmHg BP Diastolic 81 mmHg Body Temperature 98.1 F O2 % BldC Oximetry 98 % BMI (Body Mass Index) 30.0 kg/m2 Results Test Acquired Date Facility Test Result H/L Range Note Order 01/10/2019 [facility] In-House EKG Viewed by Sommer Flood Procedures Date Code Description Status 01/10/2019 51184 EKG Tracing & Interpretation Completed 01/04/2019 78534139 Colonoscopy Completed 05/20/2017 [id number] Bone Mineral Density Test Completed 02/04/2017 62113057 Mammogram Completed Medical Devices Description No Information Available Encounters Type Date Location Provider Dx Diagnosis Office Visit 12/18/2018 [facility] Gwendolyn Brian, M25.552 Pain in left hip 10:00a at [facility] Trejo M16.12 Unilateral primary osteoarthritis, left hip Office Visit 09/21/2018 10:20a [facility] Internal Katherine Linn, R59.0 Localized Medicine - [facility] enlarged lymph nodes Office Visit 08/09/2018 10:00a [facility] Internal Katherine Linn, Z12.11 Encounter for Medicine - [facility] screening for malignant neoplasm of colon R59.0 Localized enlarged lymph nodes Office Visit 07/28/2018 4:20p [facility] Internal Katherine Linn, R50.9 Fever, unspecified Medicine - [facility] Assessments Date Code Description Provider 01/17/2019 R59.0 Localized enlarged lymph nodes Wade López NP 01/10/2019 Z01.818 Encounter for other preprocedural examination [facility] 01/10/2019 M16.12 Unilateral primary osteoarthritis, left hip Chyna Bridges THEATRICAL RIGGER 01/10/2019 B37.9 Candidiasis, unspecified Chyna Bridges, [facility] 01/10/2019 Z23 Encounter for immunization Chyna Bridges THEATRICAL RIGGER 12/18/2018 M25.552 Pain in left hip Gwendolyn Brian M.D. 12/18/2018 M16.12 Unilateral primary osteoarthritis, left hip Gwendolyn Brian M.D. 09/21/2018 R59.0 Localized enlarged lymph nodes Katherine Linn MD 08/09/2018 Z12.11 Encounter for screening for malignant neoplasm Katherine Linn MD of colon 08/09/2018 R59.0 Localized enlarged lymph nodes Katherine Linn MD 07/28/2018 R50.9 Fever, unspecified Katherine Linn MD Plan of Treatment Future Appointment(s):01/19/2019 9:00 am - Gwendolyn Brian M.D. at [facility] at Ogydtn7802/02/2019 12:30 pm - Gwendolyn Brian M.D. at [facility] at Toxqux7504/27/2019 1:20 pm - Katherine Linn MD at [facility] Internal Medicine - [facility]01/17/2019 - Wade López, NPR59.0 Localized enlarged lymph nodesNew Medication:Azithromycin 250 mg - 2 tabs by mouth every day x1 day, 1 tab by mouth every day x 4 daysComments:Continue to monitor the area for changes. If there is no improvement or any worsening start the antibiotic. Functional Status Description No Information Available Mental Status Description No Information Available Referrals Description No Information Available
--- OUTSIDE RECORDS SUMMARY | 2019-02-02 12:33 | XMS REPORT | Continuity of Care Document ---
:1960 External Reference #:[id number] Author Name Gwendolyn Brian M.D. 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 Onset: 04/22/2017 Cervico-occipital neuralgia Ross Foster M.D. Onset: 04/22/2017 Candidiasis Ross Foster M.D. Onset: 04/22/2017 Obesity Ross Foster M.D. Onset: 04/22/2017 Localized, primary osteoarthritis Gwendloyn Brian M.D. Onset: 07/03/2018 Localized, primary osteoarthritis of the Gwendolyn Brian M.D. 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 07/17/2018 Injection Depomedrol 40MG Gwendolyn Brian M.D. 07/03/2018 Injection Immunizations CPT Code Status Date Vaccine Reaction Lot # [id number] Given 01/10/2019 Influenza Virus Vaccine, shot tolerated well, no [id number] Quadrivalent, Split, immediate reaction Preservative Free 99698 Given 04/26/2018 Tdap - No immediate reaction [id number] Tetanus/Diptheria/Acellular Pertussis 68108 Given 01/31/2017 Influenza Virus Vaccine, no reaction, pt [id number] Quadrivalent, Split, tolerated well Preservative Free Vital Signs Date Vital Result Comment 01/19/2019 9:06am Height 67 inches 5'7" Weight 189.00 lb Heart Rate 84 /min BP Systolic 116 mmHg BP Diastolic 82 mmHg Respiratory Rate 16 /min Pain Level 2 BMI (Body Mass Index) 29.6 kg/m2 01/17/2019 4:11pm Height 67 inches 5'7" Weight 193.38 lb Heart Rate 82 /min BP Systolic 142 mmHg BP Diastolic 85 mmHg Body Temperature 98.4 F O2 % BldC Oximetry 95 % BMI (Body Mass Index) 30.3 kg/m2 Results Test Acquired Date Facility Test Result H/L Range Note Order 01/10/2019 [facility] In-House EKG Viewed by Sommer Flood Procedures Date Code Description Status 01/10/2019 45844 EKG Tracing & Interpretation Completed 01/04/2019 [id number] Colonoscopy Completed 05/20/2017 840007150 Bone Mineral Density Test Completed 02/04/2017 [id number] Mammogram Completed Medical Devices Description No Information Available Encounters Type Date Location Provider Dx Diagnosis Office Visit 12/18/2018 [facility] Gwendolyn Brian, M25.552 Pain in left hip 10:00a at [facility] M16.12 Unilateral primary osteoarthritis, left hip Office Visit 09/21/2018 10:20a [facility] Internal Katherine Kaveh, R59.0 Localized Medicine - Ccmob MD enlarged lymph nodes Office Visit 08/09/2018 10:00a [facility] Internal Katherine Linn, Z12.11 Encounter for Medicine - Ccmob MD screening for malignant neoplasm of colon R59.0 Localized enlarged lymph nodes Office Visit 07/28/2018 4:20p [facility] Internal Katherine Kaveh, R50.9 Fever, unspecified Medicine - Ccmob MD Assessments Date Code Description Provider 01/19/2019 M25.552 Pain in left hip Gwendolyn Brian M.D. 01/19/2019 M16.12 Unilateral primary osteoarthritis, left hip Gwendolyn Brian M.D. 01/17/2019 R59.0 Localized enlarged lymph nodes Wade López NP 01/10/2019 Z01.818 Encounter for other preprocedural examination [facility] 01/10/2019 M16.12 Unilateral primary osteoarthritis, left hip Chyna Bridges , [facility] 01/10/2019 B37.9 Candidiasis, unspecified Chyna Bridges [facility] 01/10/2019 Z23 Encounter for immunization Chyna Bridges [facility] 12/18/2018 M25.552 Pain in left hip Gwendolyn Brian M.D. 12/18/2018 M16.12 Unilateral primary osteoarthritis, left hip Gwendolyn Brian M.D. 09/21/2018 R59.0 Localized enlarged lymph nodes Katherine Linn MD 08/09/2018 Z12.11 Encounter for screening for malignant neoplasm Katherine Linn MD of colon 08/09/2018 R59.0 Localized enlarged lymph nodes Katherine Linn MD 07/28/2018 R50.9 Fever, unspecified Katherine Linn MD Plan of Treatment Future Appointment(s):02/02/2019 12:30 pm - Gwendolyn Brian M.D. at [facility] at [facility]/27/2019 1:20 pm - Katherine Linn MD at [facility] Internal Medicine - [facility]01/19/2019 - Gwendolyn Brian M.D.M25.552 Pain in left hipFollow up :Follow up: 2 weeks after cgwbidcV25.12 Unilateral primary osteoarthritis, left hip Functional Status Description No Information Available Mental Status Description No Information Available Referrals Description No Information Available
[2019-02-02] MEDS ORDERED: Buffered Lidocaine 1% SYRIN* 1 ML/SYRINGE INTRADERM ONE (13:32)
[2019-02-02] MEDS ORDERED: Dexamethasone IV* 4 MG/ML 1 ML (4 MG) ONE (13:32)
[2019-02-02] MEDS ORDERED: celeCOXIB CAP* 200 MG ONE (13:32)
[2019-02-02] MEDS ORDERED: Gabapentin CAP(*) 300 MG ONE (13:32)
[2019-02-02] MEDS ORDERED: Famotidine IV* 10 MG/ML 2 ML (20 mg) ONE (13:33)
[2019-02-02] MEDS ORDERED: ceFAZolin 2 GM PREMIX in ORs 2 GM/50 ML BAG ONE (14:02)
[2019-02-02] MEDS ORDERED: Midazolam* 1 MG/ML 5 ML VIAL (5 MG) ONE (14:52)
[2019-02-02] MEDS ORDERED: KETAMINE HCL* 50 MG/ML 10 ML VIAL ONE (14:52)
[2019-02-02] MEDS ORDERED: ROPIVACAINE 5 MG/ML 30 ML BTL (0.5%) ONE (15:05)
--- NOTE | 2019-02-02 17:02 | OP ---
Operative Report - Blank - Operative Report Date of Operation: 02/02/19 Note: HAI MORELOS 1960 Date Of Surgery: 02/02/19 Gwendolyn Brian MD Communications Equipment Operator: Kunal HEATH did help throughout the procedure with preparation of the hip, wound retraction, manipulation of the hip, and wound closure. Anesthesiologist: Ilan Butcher MD Anesthesia Type: Spinal Preoperative Diagnosis: Left severe degenerative osteoarthritis of the hip Postoperative Diagnosis: As above Procedure Performed: Left Total Hip Arthroplasty Complications: None Specimen: Femoral head and acetabular reamings sent to pathology. Hardware used: This is uncemented Uri total hip arthroplasty hardware for the femur a size 4 accolade II with 127 neck angle femoral component, for the acetabulum a size 52E trident II tritanium cluster hole shell, a single 15 mm screw, for the insert a size 36E trident X 3 polyethylene insert, and for the femoral head a size 36 + 2.5 biolox ceramic V40 femoral head. Brief history/Indication: HAI MORELOS was known in clinic and had a history of severe left hip pain. She failed conservative treatment with anti- inflammatories, pain pills, intra-articular injections and physical therapy. She elected to undergo left total hip arthroplasty due to continued pain and decreased quality of life. Radiographs showed severe end stage osteoarthritis of the hip with bone on bone contact. Informed consent was obtained from the patient. She understood the risks of surgery included but were not limited to: bleeding, infection, damage to nearby structures, intraoperative fracture, nerve palsy, failure of the hardware, early loosening, stiffness or loss of motion, dislocation, leg length discrepancy, anesthesia complications, stroke, heart attack, blood clot and . She wished to proceed. Intra-Operative findings: Intraoperatively the patient was noted to have severe loss of cartilage of the acetabulum and femoral head. Description of the Procedure: HAI MORELOS was identified in the preanesthesia unit. Her left hip was marked as the correct operative side. Informed consent was signed and placed in the chart. The patient was taken to the operating room and placed under anesthesia without complication. A burdick catheter was placed. The patient was placed on the peg board with all bony prominences well padded. The left lower extremity was prepped and draped in the usual sterile fashion. Preoperative time -out was made to correctly identify the patient, side and site. Appropriate intraoperative antibiotics were given within one hour of incision. A standard posterior incision was made and carried sharply down to the lateral fascia. A new 10 blade was used to make an incision in the fascia in line with the skin incision. A charnley retractor was placed. The piriformis and conjoined tendons were identified and elevated off the posterolateral femur using electrocautery. These were tagged with number 5 Ethibond. Next electrocautery was used to make a posterolateral capsular flap and this was tagged with number 5 Ethibonds. The hip was carefully dislocated. Lesser trochanter to the center of the femoral head was measured at 57 mm. The oscillating saw was used to make the femoral neck cut. The femoral head was carefully removed. The femur was retracted anteriorly and the acetabular retractors were placed. Long-handled knife was used to sharply remove any remaining labrum from the acetabular rim. The acetabulum was sequentially reamed up to a size 52. A bleeding subchondral bone bed was obtained. A trial liner was placed and had excellent fit and stability. A 52E cup with one 15mm screw was placed and had excellent stability with appropriate anteversion and abduction angle. A size 36E liner was impacted into the acetabular shell. The liner was checked for stability and was stable. Next attention was turned to preparation of the femoral canal. A canal finder was used to enter the proximal femur. The femoral canal was sequentially broached up to a size 4 femoral broach trial. A trial neck and 36 + 2.5 ceramic trial femoral head was chosen. Lesser trochanter to center of the femoral head measurement was satisfactory. The hip was reduced and taken through a range of motion. The hip was stable in all positions with good soft tissue tension and appropriate leg lengths. The hip was dislocated and all trials were removed. The final implant chosen was a accolade II size 4. This stem was impacted into the femoral canal without difficulty. The stem was stable with appropriate anteversion. The femoral head chosen was a 36 + 2.5 head. The head was impacted onto the femoral neck without difficulty. The final lesser trochanter to center of the femoral head measurement was satisfactory. The hip was reduced and taken through a range of motion. The hip was stable in all positions with good soft tissue tension and appropriate leg lengths. The hip was copiously irrigated with sterile saline. The previously tagged capsule and tendons were repaired to the posterolateral femur through two trochanteric drill holes. The lateral fascia layer was closed using number 1 vicryls. The rest of the incision was closed in a layered fashion using 0 and 2-0 vicryls. The skin was closed using 3-0 monocryl suture and Dermabond. Sterile adaptic, 4x4s and paper tape was used to cover the incision. The patients anesthesia was reversed without difficulty. She was taken to the PACU in stable condition. Intended weight-bearing will be as tolerated with posterior hip precautions.
[2019-02-02] MEDS ORDERED: Lidocaine 2% PF * 5 ML VIAL ONE (17:07)
[2019-02-02] MEDS ORDERED: Propofol* 500 MG/50 ML BTL ONE (17:07)
[2019-02-02] MEDS ORDERED: oxyCODONE TAB* 5 MG TAB PO PRN (17:09)
[2019-02-02] MEDS ORDERED: DiMENhydriNATE IV* 50 MG/ML VIAL IV PUSH PRN (17:09)
[2019-02-02] MEDS ORDERED: fentaNYL* 50 MCG/ML 2 ML VIAL (100 MCG VIAL) IV PRN (17:09)
[2019-02-02] MEDS ORDERED: Naloxone* 0.4 MG/ML 1 ML VIAL IV PRN (17:09)
[2019-02-02] MEDS ORDERED: HYDROmorphone INJ1* 1 MG/ML SYRINGE IV PRN (17:09)
[2019-02-02] MEDS ORDERED: PROCHLORPERAZINE INJ 5 MG/ML 2 ML VIAL IV PRN (17:09)
[2019-02-02] MEDS ORDERED: Cyclobenzaprine TAB* 10 MG PO PRN (17:18)
[2019-02-02] MEDS ORDERED: Polyethylene Glycol 3350* 17 GM PACKET PO PRN (17:18)
[2019-02-02] MEDS ORDERED: Ondansetron INJ* 2 MG/ML VIAL IV PRN (17:18)
[2019-02-02] MEDS ORDERED: diPHENhydraMINE IV* 50 MG/ML 1 ml VIAL (BENADRYL) IV PRN (17:18)
[2019-02-02] MEDS ORDERED: Ondansetron ODT TAB* 4 MG PO PRN (17:18)
[2019-02-02] MEDS ORDERED: Magnesium Hydroxide LIQ* 30 ML UDC PO PRN (17:18)
[2019-02-02] MEDS ORDERED: diPHENhydraMINE LIQ* 12.5 MG/5 ML UDC PO PRN (17:18)
[2019-02-02] MEDS ORDERED: diPHENhydraMINE PO* 25 MG PO PRN (17:18)
[2019-02-02] MEDS ORDERED: Morphine INJ* 2 MG/ML 1 ML SYRINGE (TWO MG - NEW SYRINGE VERSION) IV PRN (17:18)
[2019-02-02] MEDS ORDERED: traMADol TAB* 50 MG PO PRN (17:18)
[2019-02-02] MEDS ORDERED: oxyCODONE/Acetamin 5/325 MG* TAB PO PRN (17:18)
[2019-02-02] MEDS ORDERED: Ondansetron TAB* 4 MG PO PRN (17:18)
[2019-02-02] MEDS ORDERED: Melatonin 3 MG TAB PO SCH (18:00)
[2019-02-02] MEDS ORDERED: Lactated Ringers 1000 ML Bag* 1,000 ML IV SCH (18:00)
[2019-02-02] MEDS: Acetaminophen TAB* 325 MG PO SCH (21:57)
[2019-02-02] MEDS: Magnesium Hydroxide LIQ* 30 ML UDC PO SCH (21:57)
[2019-02-02] MEDS: Docusate CAP* 100 MG PO SCH (22:20)
[2019-02-02] MEDS: ceFAZolin 1 GM ADVAN(*) 1 GM in NS 0.9% 50 ML* 50 ML IVPB SCH (23:00)
[2019-02-03] MEDS: oxyCODONE TAB* 5 MG TAB PO PRN ×3 (03:52→12:03)
[2019-02-03] MEDS: ceFAZolin 1 GM ADVAN(*) 1 GM in NS 0.9% 50 ML* 50 ML IVPB SCH ×2 (05:52→13:54)
[2019-02-03] MEDS: Acetaminophen TAB* 325 MG PO SCH ×2 (06:01→13:55)
[2019-02-03 08:11] LABS: Hematocrit 38 % (35-47); Hemoglobin 12.7 g/dL (12.0-16.0); Mean Platelet Volume 8.2 fL (7.4-10.4); Platelet Count 299 10^3/uL (150-450)
[2019-02-03] MEDS: Docusate CAP* 100 MG PO SCH (08:15)
[2019-02-03] MEDS: Magnesium Hydroxide LIQ* 30 ML UDC PO SCH (08:16)
[2019-02-03 08:45] LABS: Calcium 8.5 mg/dL (8.6-10.3); EGFR African American 96.4 (>60); EGFR Non-African American 79.6 (>60); Potassium 3.5 mmol/L (3.5-5.0)
[2019-02-03] MEDS ORDERED: Vitamin THERAPEUTIC TAB PO SCH (09:00)
[2019-02-03] MEDS ORDERED: Apixaban* 2.5 MG TAB PO SCH (09:00)
[2019-02-03 12:17] VITALS: BP 133/72
--- NOTE | 2019-02-03 12:20 | DS ---
Orthopedic Discharge Summary - Discharge Summary Date of Admission:02/02/19 Date of Discharge: 02/03/19 Date of Surgery: 02/02/19 Attending Orthopedic Provider: Dr. Brian Pre-operative Diagnosis: Left hip osteoarthritis Operative Procedure: Left total hip arthroplasty Disposition of Patient: Home Condition of Patient: Stable History: HAI MORELOS is a 58 year old F with years of increasingly severe left hip pain. Patient has failed conservative management and has elected to undergo a Left total hip arthroplasty. Hospital Course: HAI was admitted to [facility] on 02/02/19. Patient underwent a Left total hip arthroplasty without complication followed by a brief recovery in PACU and transfer to the Short Stay Surgical Unit in stable condition. Physical therapy and occupational therapy also participated in this patients care. Post-op day 1: patient was alert and in no acute distress. Dressing was clean, dry and intact. Operative extremity dorsiflexion and plantarflexion intact, sensation intact to light touch distally, DP2+. Dressing was changed, incision was clean, dry and intact. Patient was deemed to be medically and orthopedically stable for discharge. Physical therapy goals were met. Home Medications Medication Instructions Recorded Confirmed Type Magnesium 30 mg PO QPM 01/04/19 02/02/19 History Melatonin 9 mg PO QPM 01/04/19 02/02/19 History Elderberry Fruit and Flower [Black 1 tab PO Q3HR 01/19/19 02/02/19 History Elderberry 575 mg Cap] Multivitamin [Multivitamins] 1 cap PO QAM 01/19/19 02/02/19 History Mv-Min/Vit C/Glut/Lysine/Hb124 1 tab PO TID 01/19/19 02/02/19 History [Airborne Effervescent Tablet] Turmeric 400 mg PO QPM 01/19/19 02/02/19 History Apixaban* [Eliquis*] 2.5 mg PO BID tab 02/03/19 Rx Bisacodyl SUPP* [Dulcolax Supp*] 10 mg [facility] DAILY PRN supp 02/03/19 Rx Cyclobenzaprine TAB* [Flexeril 10 10 mg PO Q6H PRN tab 02/03/19 Rx MG TAB*] Docusate CAP* [Colace Cap*] 100 mg PO BID cap 02/03/19 Rx Discharge Instructions following Orthopedic Surgery: Activity: * Weight Bearing as tolerated * Continue physical therapy and occupational therapy exercises as shown Wound care: * OK to shower on post-op day 3, no bathing, swimming, or submerging wound. * Use gentle soap, pat dry. Cover with gauze, CRISTHIAN wrap or tape. * Visiting home nurse to do wound checks. Call Orthopedic office for: * Increased drainage * Redness * Increased pain * Fever Go to ER with shortness of breath or chest pain. Diet: * Regular diet * Increase fluids and fiber to prevent constipation. * Continue to use stool softeners, call office if no bowel motion within 48 hours. Medications- Sent to [facility] pharmacy. See Home Medication List in your packet for medications that you should take after discharge. DVT Prophylaxis: Eliquis Dosin.5 mg, 1 tab every 12 hours x 30 days Pain Control: Percocet Dosin/325 mg 1-2 tabs by mouth every 4-6 hours as needed for pain. Maximum of 10 tabs per day. Cyclobenzaprine 10 mg three times daily as needed for muscle spasm. Please note that Percocet contains Tylenol (acetaminophen). Maximum daily dose of Tylenol is 4000 mg from all sources. Antibiotics are required prior to any dental work. FOLLOW UP: Follow up with Dr. Brian Within 10-14 days, call for appointment Please call our office with any questions or concerns ([phone])
== END 2019-02-03 15:25 | disposition home or self-care (01) | DRG 301 ==
LOC: AA 12:28 → SSU 17:18
PROVIDERS: ADMIT Orthopaedic Surgery Adult Reconstructive Orthopaedic Surgery; ATTEND Orthopaedic Surgery Adult Reconstructive Orthopaedic Surgery
PROC: 0SRB04A Replacement of Left Hip Joint with Ceramic on Polyethylene Synthetic Substitute, Uncemented, Open Approach (ICD-10-PCS; principal; 2019-02-02 14:00)
DX: M25.752 Osteophyte, left hip (principal); M16.12 Unilateral primary osteoarthritis, left hip; Z79.899 Other long term (current) drug therapy; Z87.891 Personal history of nicotine dependence
CPT/HCPCS: 36415; 80048; 85014; 85018; 85049; 88304; 88311; A9270-GY; C1713; C1776; G8978-GP-CH; G8978-GP-CJ; G8979-GP-CH; G8979-GP-CI; J0690; J1100; J2250; J2405; J2704; J2795; J3490